=== PATIENT | male | born 1955 | race African-American/Black ===

== ENCOUNTER → 2020-04-19 | Outpatient (CLI) | payer OTHER ==
[~2020-04-19] MED LIST: IOHEXOL 300 MG/ML 75 ML VIAL. IV ONE
--- NOTE | 2020-04-19 10:17 | RAD ---
PQRS Compliance Statement: One or more of the following individualized dose reduction techniques were utilized for this examinat ion: 1. Automated exposure control 2. Adjustment of the mA and/or kV according to patient size 3. Use of iterative reconstruction technique CT ABDOMEN+PELVIS WO+W Clinical Indication: Reason: GROSS HEMATURIA 1 MONTH AGO- Comparison: None. TECHNIQUE: Helical CT imaging of the abdomen and pelvis is performed before and after 75 cc of Omnipa que 300 IV contrast using urogram protocol. 3-D MIP reconstruction of the ureters. Findings: There is no renal, ureteral, or bladder calculus. There is no hydronephrosis. Kidneys enhance symmetr ically. There are small bilateral cortical cysts. There is small left parapelvic cysts. The cysts do not require follow-up. Filling defect of the renal pelves is not seen. The ureters are contrast opaci fied except the distal left ureter. No focal abnormality is seen. The urinary bladder is normal. Minimal atelectasis in the posterior lower lobes bilaterally. Coronary artery disease. Cardiac size i s normal. There are 3 tiny hypodensities in the liver, too small to further characterize. The gallbladder, sple en, pancreas, adrenal glands, and abdominal aorta are normal. The stomach is unremarkable. There is no dilated small bowel. The appendix is normal. There is no col on wall thickening. There is no abdominal adenopathy or free fluid. The prostate size is normal. Seminal vesicles are symmetric. No pelvic free fluid. No inguinal adenop athy. There is posterior decompression of L4. There is degenerative spondylosis of the lumbar spine. There is mild right convexity thoracolumbar scoliosis centered at L2. IMPRESSION: No acute abdominal or pelvic abnormality. No CT explanation for patient's hematuria. Electronically signed by: Ever Brown MD (04/19/2020 10:15 AM) [id number]
== END ==
LOC: CT 07:49
PROVIDERS: ATTEND Specialist
DX: N28.1 Cyst of kidney, acquired (principal); R31.0 Gross hematuria; I25.10 Atherosclerotic heart disease of native coronary artery without angina pectoris; J98.11 Atelectasis; M47.816 Spondylosis without myelopathy or radiculopathy, lumbar region; M41.85 Other forms of scoliosis, thoracolumbar region
CPT/HCPCS: 74178; Q9967